=== PATIENT | male | born 1955 | race Caucasian/White ===

== ENCOUNTER → 2017-10-02 15:16 | Outpatient (CLI) | payer BC ==
[2010-09-27 08:41] VITALS: BMI 25.8
[~2017-10-02 15:16] MED LIST: HYDROXYZINE HCL50 MG PO; PERCOCET 5-3251 TAB PO
[2017-10-12 08:26] VITALS: BMI 27.2
== END | disposition home or self-care (01) ==
LOC: D.MRI 15:16
DX: M25.511 Pain in right shoulder (principal)

== ENCOUNTER 2017-10-12 06:40 | Day surgery (SDC) | payer BC ==
[~2017-10-12] VITALS: Ht 180.3 cm; Wt 88.5 kg
[2017-10-12 08:26] VITALS: BP 132/97; Ht 180.3 cm; Wt 88.5 kg
[2017-10-12] MEDS ORDERED: PERCOCET 5-3251 TAB PO (12:12)
[2017-10-12] MEDS ORDERED: HYDROXYZINE HCL50 MG PO (12:13)
--- NOTE | 2017-10-12 15:32 | OP ---
PATIENT NAME: MARTHA LARSON MEDICAL RECORD: [id number] :53 [facility] AD[facility] DATE: SURGEON: CHRISTIE VANG DO DATE OF OPERATION: 10/12/2017 DATE OF SURGERY: 10/12/2017 PROCEDURE PERFORMED: Right shoulder arthroscopy with subacromial decompression, distal clavicle excision and mini open rotator cuff repair. PREOPERATIVE DIAGNOSES: Rotator cuff tear, acromioclavicular joint arthritis and subacromial impingement. POSTOPERATIVE DIAGNOSES: Rotator cuff tear, acromioclavicular joint arthritis and subacromial impingement. INDICATIONS: Mr. 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 He got an MRI, showed massive supraspinatus tear, had been retracted along with severe AC joint arthritis and a type 2 hooked acromion. We had a discussion with him and he wanted to get it fixed, told him it was a massive tear and the rehab of this would be quite difficult. He was on board with that. DESCRIPTION OF PROCEDURE: The patient was given a block in the preoperative area by anesthesia and taken to the operative suite, given 900 mg clindamycin preoperatively for antibiotic. His right arm was prepped and draped in a sterile fashion. A timeout was performed, everyone was in agreement of correct side, site and patient. The shoulder was marked out and a posterior portal was marked with an 18-gauge needle and then the shoulder itself was inflated with 60 mL of saline. Then, the needle was withdrawn and an 11 blade was used to establish a posterior portal and the trocar was entered into the shoulder joint itself and then the camera. The shoulder joint was viewed and the massive cuff tear on the supraspinatus was seen right away and shoulder joint itself looked good. There was no cartilage damage. In fact, the bicep tendon was intact as well as the subscapularis tendon. The bicep tendon was probed and there was no SLAP tear seen. The anterior portal was established and biceps tendon was probed, again no SLAP tear seen. Once this was done, the camera was removed and trocar was entered up as the subacromial space cleared off and a lateral portal was established. The acromion and the AC joint was then cleared off of the burner and then the bur was used to do the subacromial decompression removing the anterolateral acromion, which had a large spur on it as well as a portion of the distal clavicle opening up the space approximately 7 mm between the acromion and the distal clavicle. Once this was done, we opened over the lateral portal and the deltoid fascia was divided and then the deltoid was divided down to the bursa. Bursa was removed off the shoulder and the rotator cuff tear was revealed. We then proceeded to put 3 anchors in at the articular margin and used the 2-0 Stitch for the rip stop of all 3 anchors and then the suture tape was placed behind that. I then tied down the 2-0 at each of the anchor sites pulling the tendon over nicely and getting nicely reduced and then those 6 sutures 2 limbs from each anchor were then put down into a middle lateral row. The suture tapes had been through the rotator cuff along with the 2-0 with the Scorpion were then used 1 limb from anterior, 1 from the middle and 1 from posterior and anterior and likewise and 1 limb from posterior, middle 1 from anterior and posterior to the central lateral row anchor with the 2-0. These OPERATIVE REPORT [id number] MARTHA LARSON ALFONSO were put down with SwiveLock anchors and had a nice repair and reduction of the rotator cuff. Once this was done, wound was thoroughly irrigated, the deltoid fascia was closed with 0 Vicryl in [id number] fashion and then the skin was closed with 2-0 Vicryl in inverted interrupted fashion. The skin over the mini open incision was closed with 4-0 Monocryl particularly in each portal site was closed with inverted interrupted stitch of 4-0 Monocryl. Dermabond was then placed over them. Adaptic Telfa and Tegaderm were then placed over the shoulder and the patient was awakened, put in a sling and taken to recovery in stable condition. Blood loss was minimal. COMPLICATIONS: None. TRANSINT:[id number] Voice Confirmation ID: [id number] DOCUMENT ID: [id number] CHRISTIE VANG DO at 1532 CC: [id number] DICTATION DATE: 10/12/17 1219 CONCRETE FLOATER: 10/12/17 1304 [facility] [address], [facility]
--- NOTE | 2017-10-12 17:40 | NUR ---
1555-ESCORTED VIA WHEELCHAIR TO PERSONAL CAR, LEFT WITH DRIVING.
== END 2017-10-12 15:55 | disposition home or self-care (01) ==
LOC: D.OPS 06:40 → D.PAN 09:45 → D.OPS 09:45 → D.PAN 09:50 → D.OPS 10:00
DX: M75.121 Complete rotator cuff tear or rupture of right shoulder, not specified as traumatic (principal); M25.811 Other specified joint disorders, right shoulder; M19.011 Primary osteoarthritis, right shoulder; Z01.812 Encounter for preprocedural laboratory examination

== ENCOUNTER → 2017-12-18 14:37 | Outpatient (CLI) | payer BC ==
[2017-10-12 08:26] VITALS: BMI 27.2
[2017-12-18 14:49] LABS: BASOPHILS 0.2 % (0-2); EOSINOPHILS 3.3 % (0-7); HEMATOCRIT 42.3 % (42.0-54.0); HEMOGLOBIN 14.5 g/dL (13.5-17.5); IMMATURE GRANULOCYTES 0.6 % (0-5); LYMPHOCYTES 27.5 % (15-50); MCH 28.7 pg (26.0-34.0); MCHC 34.3 g/dL (31.0-37.0); MCV 83.8 fL (80.0-100.0); MEAN PLATELET VOLUME 9.9 fL (7.4-10.4); MONOCYTES 11.8 % (2-11); NEUTROPHILS 56.6 % (40-80); PLATELET COUNT 250 10x3/uL (130-400); RBC 5.05 10x6/uL (4.20-6.10); WBC 5.4 10x3/uL (4.8-10.8)
[2017-12-18 15:55] LABS: ERYTHROCYTE SEDIMENTATION RATE 14 mm/hr (0-20)
== END | disposition home or self-care (01) ==
LOC: D.LABREF 14:37
PROVIDERS: Orthopaedic Surgery
DX: M25.511 Pain in right shoulder (principal)

== ENCOUNTER → 2018-01-03 11:04 | Outpatient (CLI) | payer BC ==
[2017-10-12 08:26] VITALS: BMI 27.2
== END | disposition home or self-care (01) ==
LOC: D.MRI 11:04
DX: M75.01 Adhesive capsulitis of right shoulder (principal)

== ENCOUNTER → 2018-05-07 17:56 | Outpatient (CLI) | payer BC ==
[2017-10-12 08:26] VITALS: BMI 27.2
[~2018-05-07 17:56] MED LIST changes: +OXYCODONE HCL5 MG PO; +PREDNISONE10 MG PO; +PREDNISONE5 MG PO; +VISTARIL50 MG PO
== END | disposition home or self-care (01) ==
LOC: D.LABREF 17:56
DX: M19.011 Primary osteoarthritis, right shoulder (principal); Z11.8 Encounter for screening for other infectious and parasitic diseases

== ENCOUNTER 2018-05-28 05:03 | Inpatient (IN) | payer MEDICARE, OTHER ==
[2018-05-27 09:52] LABS: BASOPHILS 0.3 % (0-2); EOSINOPHILS 0.9 % (0-7); HEMOGLOBIN 15.8 g/dL (13.5-17.5); IMMATURE GRANULOCYTES 0.3 % (0-5); LYMPHOCYTES 18.7 % (15-50); MCH 29.8 pg (26.0-34.0); MCHC 35.1 g/dL (31.0-37.0); MCV 84.7 fL (80.0-100.0); MEAN PLATELET VOLUME 9.4 fL (7.4-10.4); MONOCYTES 6.6 % (2-11); NEUTROPHILS 73.2 % (40-80); RBC 5.31 10x6/uL (4.20-6.10); RDW 14.1 % (11.5-14.5); WBC 7.8 10x3/uL (4.8-10.8)
[2018-05-27 09:58] LABS: APPEARANCE CLEAR (CLEAR); BILIRUBIN NEGATIVE (NEGATIVE); CALC OSMOLALITY 282 mosm/kg (275-300); CALCIUM 9.2 mg/dL (8.5-10.1); CARBON DIOXIDE 29.5 mmol/L (21.0-32.0); CHLORIDE - SERUM 103 mmol/L (98-107); COLOR YELLOW (YELLOW); GLUCOSE 125 mg/dL (74-106); GLUCOSE NEGATIVE (NEGATIVE); KETONE NEGATIVE (NEGATIVE); NITRITE NEGATIVE (NEGATIVE); POTASSIUM - SERUM 4.2 mmol/L (3.5-5.1); PROTEIN NEGATIVE (NEGATIVE); SODIUM 140 mmol/L (136-145); SPECIFIC GRAVITY 1.015 (1.005-1.020); UREA NITROGEN 20 mg/dL (7-18); UROBILINOGEN NORMAL (NORMAL); eGFR NON AFRICAN AMERICAN 80 mL/min (90-120)
[2018-05-27 09:59] LABS: PLATELET COUNT 184 10x3/uL (130-400)
[2018-05-27 10:25] LABS: APTT 25.4 SECONDS (22.8-39.4); INR 0.9 (0.85-1.17); PROTIME 11.8 SECONDS (11.6-15.0)
[~2018-05-28] VITALS: Ht 180.3 cm; Wt 88.6 kg
[2018-05-28] VITALS (8 sets, daily range): BP systolic 117–137; BP diastolic 77–87; Ht 180.3 cm; Wt 88.6 kg
--- NOTE | ~2018-05-28 | OP ---
PATIENT NAME: MARTHA LARSON MEDICAL RECORD: [id number] :53 LOCATION:[id number] ADMISSION DATE:05/28/18 SURGEON: CHRISTIE VANG DO DATE OF OPERATION: 05/28/2018 PROCEDURE PERFORMED: Right reverse total shoulder arthroplasty. PREOPERATIVE DIAGNOSIS: Right rotator cuff arthropathy. POSTOPERATIVE DIAGNOSIS: Right rotator cuff arthropathy. INDICATIONS: Mr. Larson is a 63-year-old male who underwent a right rotator cuff repair back in September of 2017. He had a massive tear with repair. A few months later, he re-tore it. It was confirmed on MRI and he wanted something down so waited until now to get a reverse total shoulder done. He was informed of the risks and benefits of the procedure including loss of motion, damage to the axillary nerve, infection, bleeding, need for further surgery. He was aware of that and wanted to proceed with the surgery. DESCRIPTION OF PROCEDURE: The patient was given a block by anesthesia in the preoperative area and taken to the operative suite, laid in supine position, given 900 mg clindamycin preoperatively. A timeout was performed. Everyone was in agreement with the correct side, site and patient. After this was performed, everyone was in agreement with the procedure as well. The right upper extremity was prepped and draped in sterile fashion. After the right upper extremity was prepped and draped, an incision was marked out in the deltopectoral interval and Ioban was then placed around the edge of the drapes and over the axilla and then the incision commenced in the deltopectoral interval with a 10 blade scalpel and then with a plasma blade. Careful dissection was made down to the deltopectoral interval. The cephalic vein was taken laterally. All bleeders were coagulated and then the pec tendon was encountered and released first proximal centimeter off of the humerus. The bicep tendon was then tenodesed to that stump site and then tenotomized proximal to that. The clavipectoral fascia was then opened and the rotator interval what was left of it was opened as well. The subscap was tagged and peeled off of the lesser tuberosity of the humerus. The humerus was then exposed. Intramedullary guide was used and it was cut. Humeral head was cut through the guide. Then, the glenoid was exposed. The labrum was removed and the subscap was freed off the front of the scapula with a Ponce. All the adhesions and then the capsule was released as well. Once the glenoid was exposed, the centering pin was put into place and then a reamer and outer reamer was used on the glenoid. A 25 baseplate was then put into place, had very good bite. Superior and inferior screws were put into place, they were 26 mm each, locking into the baseplate superior and inferiorly and then a lateralized glenosphere was put on and tightened down. The humerus was then exposed and broached. I broached to a 3, had very tight fit with the 3. It was very tight and unable to reduce to 2 down and then we planed it, again was very tight and so more humerus was resected. After additional humerus resected, the 2 stem fit very well and had good stability and was very tight and the trial was put into place and reduced with an eccentric tray. Once this was reduced, had good motion with that implant and the position it was in. That was removed and then the previous suture anchors had been removed as well from the rotator cuff repair prior to that. Then the implant was put into place, a 2 stem with the eccentric tray and the poly and the shoulder was reduced. He had good motion, adequate internal rotation, external rotation and abduction to 90 and the conjoined tendon was taut, but not too tight as well as the deltoid fibers. The OPERATIVE REPORT [id number] MARTHA LARSON wound was then thoroughly irrigated and Surgicel beads were put into place. The deltopectoral interval was closed after a drain was put in and the deltopectoral interval was closed with 0 Vicryl in a simple interrupted fashion and the drain was stitched in with 2-0 silk and then the skin was closed with 2-0 Vicryl and 4-0 Monocryl running on the skin with Prineo put on the incision itself. The wound was then covered with Adaptic, 4 x 4s, ABD, and tape. The patient was awakened and taken to recovery in stable condition in a sling. Blood loss was approximately 200 mL. Complications were none. TRANSINT:[id number] Voice Confirmation ID: [id number] DOCUMENT ID: [id number] CHRISTIE VANG DO at 1230 CC: [id number] DICTATION DATE: 05/28/18 0938 HANDICRAFT OR HOBBY SHOP MANAGER: 05/28/18 1158 ADM IN [place] [id number] [facility], [facility]901
[~2018-05-28 05:03] MED LIST changes: -OXYCODONE HCL5 MG PO; -VISTARIL50 MG PO
[2018-05-29 03:40] VITALS: BP 124/84
[2018-05-29 06:17] LABS: HEMATOCRIT 39.6 % (42.0-54.0); HEMOGLOBIN 13.5 g/dL (13.5-17.5); MCHC 34.1 g/dL (31.0-37.0); MCV 85.2 fL (80.0-100.0); MEAN PLATELET VOLUME 9.4 fL (7.4-10.4); RBC 4.65 10x6/uL (4.20-6.10); WBC 8.7 10x3/uL (4.8-10.8)
[2018-05-29 08:04] VITALS: BP 125/91
[2018-05-29 13:24] VITALS: BP 119/86
[2018-05-29 16:40] VITALS: BP 139/81
[2018-05-29 20:32] VITALS: BP 140/87
[2018-05-30 00:38] VITALS: BP 134/84
[2018-05-30 04:49] VITALS: BP 118/86
[2018-05-30 06:47] LABS: HEMOGLOBIN 13.3 g/dL (13.5-17.5); MCH 29.1 pg (26.0-34.0); MCHC 34.1 g/dL (31.0-37.0); MCV 85.3 fL (80.0-100.0); MEAN PLATELET VOLUME 9.9 fL (7.4-10.4); RBC 4.57 10x6/uL (4.20-6.10); RDW 14.1 % (11.5-14.5)
[2018-05-30 06:58] LABS: WBC 6.5 10x3/uL (4.8-10.8)
[2018-05-30] MEDS ORDERED: OXYCODONE HCL5 MG PO (08:09)
[2018-05-30] MEDS ORDERED: VISTARIL50 MG PO (08:09)
[2018-05-30 09:14] VITALS: BP 122/83
[2018-05-30 12:19] VITALS: BP 124/84
== END 2018-05-30 15:19 | disposition home or self-care (01) | DRG 483 ==
LOC: D.MS 05:03 → D.SDCHOLD 05:03 → D.MS 10:12 → D.SDCHOLD 05-30 13:35 → D.MS 05-30 13:38
PROVIDERS: Orthopaedic Surgery
PROC: 0RRJ00Z Replacement of Right Shoulder Joint with Reverse Ball and Socket Synthetic Substitute, Open Approach (ICD-10-PCS; principal; 2018-05-28 07:30)
DX: M75.121 Complete rotator cuff tear or rupture of right shoulder, not specified as traumatic (principal)

== ENCOUNTER 2019-02-18 08:05 | Day surgery (SDC) | payer MEDICARE, OTHER ==
[2019-02-17 14:34] LABS: HEMATOCRIT 44.1 % (42.0-54.0); HEMOGLOBIN 15.8 g/dL (13.5-17.5); MCH 30.3 pg (26.0-34.0); MCHC 35.8 g/dL (31.0-37.0); MCV 84.5 fL (80.0-100.0); MEAN PLATELET VOLUME 9.4 fL (7.4-10.4); RBC 5.22 10x6/uL (4.20-6.10); RDW 13.2 % (11.5-14.5); WBC 6.2 10x3/uL (4.8-10.8)
[2019-02-17 14:44] LABS: CALCIUM 8.9 mg/dL (8.5-10.1); CARBON DIOXIDE 23.7 mmol/L (21.0-32.0); CREATININE - SERUM 1.2 mg/dL (0.6-1.3); POTASSIUM - SERUM 3.7 mmol/L (3.5-5.1)
[~2019-02-18 08:05] MED LIST changes: +OXYCODONE HCL5 MG PO; +VISTARIL50 MG PO
[2019-02-18 11:56] VITALS: BP 159/90; BMI 30.7
--- NOTE | 2019-02-18 19:28 | NUR ---
1545 PT MEDICATED WITH DEMEROL 12.5 DUE TO MILD SHIVERING NOT COLD. TEMP 97.8 PT WILL TAKE B/P PILL WHEN HE GETS HOME.
--- NOTE | 2019-02-19 08:33 | OP ---
PATIENT NAME: MARTHA LARSON MEDICAL RECORD: [id number] :51 LOCATION:D.[facility] ADMISSION DATE: SURGEON: RORY DAWSON MD DATE OF OPERATION: 02/18/2019 SURGEON: Rory Dawson MD ANESTHESIA: TIVA by YARA Gonzalez CRNA. DIAGNOSIS: Obstructive benign prostatic hypertrophy. PROCEDURE: UroLift times 4 in box configuration. FINDINGS: Bladder neck obstruction. SPECIMENS: None. ESTIMATED BLOOD LOSS: None. CLINICAL HISTORY: This is a 63-year-old male who has a chief complaint of obstructive BPH. He came to see me with an interest in having the UroLift procedure done. His voiding symptoms have been present for over 1 year and he has tried Flomax in the past without any success. He stopped taking Flomax after 6 months of using the medication. Currently, he has nocturia times 1 and sometimes he has to void every 1 hour at night. During the day, he has to void up to 17 times in 1 day. There is urgency with urge incontinence and the flow is good. His PSA was 0.8 on 12/04/2018. His IPSS score was 20. His quality of life score was 5. On digital rectal examination, he had a 40 gram prostate without any nodules. He is not allergic to any medications. He was given Ancef artificial insemination technician to the OR. DESCRIPTION OF PROCEDURE: The patient was given IV sedation. He was then placed in the dorsal lithotomy position. Lidocaine jelly was inserted into the urethra. The UroLift scope was then introduced. Penile urethra shows no strictures. Prostatic urethra shows nonobstructive lateral lobes. The main site of obstruction was the bladder neck. Four UroLift implants are placed at the level of the bladder neck. They were placed 1.5 cm distal to the bladder neck. The 2 anterior implants were placed at the anterior lateral sulcus, 1 on each side. Then, the 2 posterior implants were placed at the mid lateral lobe level. This created a nice channel at the bladder neck, which was opened up from his previous condition. The bladder urine was left partly full and then the scope was removed. The reason for leaving some fluid in the bladder was for voiding trial. TRANSINT:[id number] Voice Confirmation ID: [id number] DOCUMENT ID: [id number] RORY DAWSON MD at 0833 CC: [id number] DICTATION DATE: 02/18/19 1346 ADMISSION NURSE: 02/18/19 1551 [facility] 02/18/19 [facility] [address] [place] [id number]
== END 2019-02-18 16:15 | disposition home or self-care (01) ==
LOC: D.OPS 08:05 → D.PAN 10:15 → D.OPS 10:15 → D.PAN 11:35 → D.OPS 11:35 → D.PAN 13:30 → D.OPS 16:15
PROVIDERS: Anesthesiology; ATTEND Urology
DX: N40.1 Benign prostatic hyperplasia with lower urinary tract symptoms (principal); N13.8 Other obstructive and reflux uropathy; N32.0 Bladder-neck obstruction; R35.1 Nocturia; N39.41 Urge incontinence; Z01.812 Encounter for preprocedural laboratory examination

== ENCOUNTER 2019-02-19 01:03 | Emergency (ER) | payer MEDICARE, OTHER ==
[~2019-02-19] VITALS: Ht 180.3 cm; Wt 99.5 kg
[2019-02-19 01:10] VITALS: BP 150/101; Ht 180.3 cm; Wt 99.5 kg
== END 2019-02-19 02:39 | disposition home or self-care (01) ==
LOC: D.ER 01:03
DX: R33.8 Other retention of urine (principal)

== ENCOUNTER → 2019-04-29 12:49 | Outpatient (CLI) | payer MEDICARE, OTHER ==
[2019-02-19 01:10] VITALS: BMI 30.6
== END | disposition home or self-care (01) ==
LOC: D.LABREF 12:49
PROVIDERS: ATTEND Urology
DX: R31.9 Hematuria, unspecified (principal)

== ENCOUNTER → 2019-12-16 10:51 | Outpatient (CLI) | payer MEDICARE, OTHER ==
[2019-02-19 01:10] VITALS: BMI 30.6
== END | disposition home or self-care (01) ==
LOC: D.MRI 10:51
PROVIDERS: ATTEND Orthopaedic Surgery
DX: M54.16 Radiculopathy, lumbar region (principal)

== ENCOUNTER → 2021-03-09 08:36 | Outpatient (CLI) | payer MEDICARE, OTHER ==
[2019-02-19 01:10] VITALS: BMI 30.6
== END | disposition home or self-care (01) ==
LOC: D.MRI 08:36
PROVIDERS: ATTEND Orthopaedic Surgery
DX: M75.102 Unspecified rotator cuff tear or rupture of left shoulder, not specified as traumatic (principal)